=== PATIENT | female | born 1975 | race Caucasian/White ===

== ENCOUNTER 2020-02-10 06:20 | Emergency (ER) | payer MEDICARE, MEDICAID, SELFPAY ==
[2020-02-10 06:25] VITALS: BP 144/94; PULSE 75; RESP 18; O2SAT 98; BMI 47.5
--- NOTE | 2020-02-10 06:25 | PC.NURSE ---
EMS states that family stated on scene that patient stated on couch that she didn't feel well and then leaned back and described tonic clonic seizure. EMS states that patient was postictal on arrival. Patient is alert and oriented upon arrival in the ED. Patient has a history of stent placements.
--- NOTE | 2020-02-10 06:29 | ECG_ITS ---
Measurements Intervals Colman Rate: 78 P: 51 ME: 154 QRS: 30 QRSD: 80 T: 30 QT: 389 QTc: 445 SINUS RHYTHM Compared to ECG 08/15/2019 20:00:06 No significant changes Electronically Signed On 02-10-2020 20:23:51 CDT by Ethan Enrique M.D. [id number]
--- NOTE | 2020-02-10 06:29 | XRR_ITS ---
PROCEDURE INFORMATION: Exam: XR Chest, 1 View Exam date and time: 02/10/2020 6:31 AM Age: 44 years old Clinical indication: Other: Seizure; Additional info: Cough TECHNIQUE: Imaging protocol: XR of the chest Views: 1 view. COMPARISON: CR Chest 1 [place] [id number] 08/15/2019 2:20 PM FINDINGS: Lungs: Unremarkable. No consolidation. Pleural space: Unremarkable. No pleural effusion. No pneumothorax. Heart/Mediastinum: Unremarkable. No cardiomegaly. Bones/joints: Unremarkable. XR/XR chest 1V portable [id number] IMPRESSION: No acute findings.
--- NOTE | 2020-02-10 06:29 | CTR_ITS ---
PROCEDURE INFORMATION: Exam: CT Cervical Spine Without Contrast Exam date and time: 02/10/2020 6:31 AM Age: 44 years old Clinical indication: Other: Post seizure; Additional info: Pain TECHNIQUE: Imaging protocol: Computed tomography images of the cervical spine without contrast. Total DLP: 919.58 mGy-cm Radiation optimization: All CT scans at this facility use at least one of these dose optimization techniques: automated exposure control; mA and/or kV adjustment per patient size (includes targeted exams where dose is matched to clinical indication); or iterative reconstruction. COMPARISON: CR Cervical Spine AP/Lat* [id number] 04/25/2019 12:07 PM FINDINGS: Vertebrae: alignment is normal. posterior vertebral line and the spinal laminar line normal odontoid process normal no fracture Rather severe facet hypertrophy C4 on the left. Subtle lucency in the lamina at C6 likely nutrient. Bony sclerosis about the above on the axial images as well as the coronal images. The arch is otherwise unremarkable. Discs/Spinal canal/Neural foramina: Degenerative disc disease C5-C6, C6-C7 and C7-T1 Soft tissues: Unremarkable. Lungs: The lung apices are normal. CT/CT cervical spin wo con* [id number] IMPRESSION: No fracture. Degenerative disc disease Radiation Dose CTDIVOL = (mGy): DLP = 919.58 (mGy-cm)
--- NOTE | 2020-02-10 06:29 | CTR_ITS ---
PROCEDURE INFORMATION: Exam: CT Head Without Contrast Exam date and time: 02/10/2020 6:31 AM Age: 44 years old Clinical indication: Pain; Headache; Other: Post seizure; Additional info: Krishnamurthy/ams TECHNIQUE: Imaging protocol: Computed tomography of the head without contrast. Total DLP: 797.6 mGy-cm Radiation optimization: All CT scans at this facility use at least one of these dose optimization techniques: automated exposure control; mA and/or kV adjustment per patient size (includes targeted exams where dose is matched to clinical indication); or iterative reconstruction. COMPARISON: No relevant prior studies available. FINDINGS: Brain: Briscoe white matter distinction is maintained throughout the brain. No radiographic evidence of intracranial hemorrhage. No CT evidence of mass hemorrhage or acute infarction. Ventricles: Ventricles are of normal size and configuration. Bones/joints: Unremarkable. No acute fracture. Sinuses: Visualized sinuses are unremarkable. No fluid levels. Mastoid air cells: Visualized mastoid air cells are well aerated. Soft tissues: Numerous sebaceous cysts Other findings: No intra or extra-axial masses, lesions or collections. CT/CT head wo con* [id number] IMPRESSION: No acute intracranial process is appreciated. Radiation Dose CTDIVOL = (mGy): DLP = 797.6 (mGy-cm)
--- NOTE | 2020-02-10 06:40 | PC.NURSE ---
patient to CT
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
[2020-02-10] MEDS: LORazepam 2 mg/mL INJ 1 mL 1 MG IVP (06:59)
[2020-02-10 07:19] LABS: Basophils # 0.1 10^3/uL (0.0-0.1); Basophils % 1.1 %; Eosinophils # 0.3 10^3/uL (0.0-0.8); Eosinophils % 3.1 %; Hematocrit 43.7 % (37.0-47.0); Hemoglobin 14.2 g/dL (11.5-15.3); Lymphocytes % 31.6 %; Mean Corpuscular HGB Conc 32.5 g/dL (30.0-36.0); Mean Corpuscular Hemoglobin 27.5 pg (28.0-34.0); Mean Corpuscular Volume 84.7 fL (81-99); Mean Platelet Volume 9.5 fL (7.4-10.4); Monocytes # 0.5 10^3/uL (0.2-0.9); Monocytes % 5.1 %; Neutrophils # 5.6 10^3/uL (1.8-7.7); Neutrophils % 58.7 %; Nucleated Red Blood Cells % 0 %; Platelet Count 240 10^3/cmm (130-400); Red Blood Count 5.16 10^6/uL (4.1-5.3); Red Cell Distribution Width 12.7 % (12.1-15.1); White Blood Count 9.4 10^3/uL (4.0-10.0)
[2020-02-10 07:29] LABS: HCG, Serum Qual Negative (Negative)
[2020-02-10] MEDS: sodium chloride 0.9% 1,000 ML 999 ML IV (07:30)
[2020-02-10 07:35] LABS: Alanine Aminotransferase 17 U/L (0-33); Albumin Level 4.3 g/dL (3.5-5.2); Alkaline Phosphatase 97 IU/L (35-105); Anion Gap 17.7 (5-19); Aspartate Amino Transferase 18 U/L (0-32); Blood Urea Nitrogen 14 mg/dL (6-20); Calcium 10.3 mg/dL (8.5-10.5); Carbon Dioxide 27 mmol/L (22-29); Chloride 100 mmol/L (98-107); Creatine Phosphokinase 60 U/L (26-192); Globulin 3.7 g/dL (1.3-4.6); Glucose 148 mg/dL (65-115); Magnesium 1.9 mg/dL (1.7-2.3); Osmolality Calculated 291 mOsm/kg (285-295); Potassium 3.7 mmol/L (3.5-5.1); Sodium 141 mmol/L (136-145); Total Bilirubin 0.5 mg/dL (0.15-1.2)
[2020-02-10] MEDS: ondansetron 2 mg/ML SDV 2 mL 4 MG IVP (07:45)
[2020-02-10] MEDS: SUMAtriptan 6 mg/0.5 mL SDV SUBCUT (08:18)
[2020-02-10] MEDS: metoclopramide 5 mg/mL SDV 2 mL 10 MG IV (08:19)
--- NOTE | 2020-02-10 08:28 | PC.NURSE ---
PATIENT C/O PAIN, EMD INFOMRED AND ORDERS RECEIVED
[2020-02-10 08:37] LABS: Amphetamines Screen Urine Negative (Negative); Barbiturates Screen Urine Negative (Negative); Benzodiazepines Screen Urine Negative (Negative); Cocaine Screen Urine Negative (Negative); Opiate Screen Urine Negative (Negative); PCP Screen Urine Negative (Negative); THC Screen Urine Negative (Negative)
[2020-02-10 08:48] LABS: Bacteria Urine 2+; Bilirubin Urine Neg (NEGATIVE); Blood Urine Neg (Negative); Glucose Urine UA Trace (Normal); Ketones Urine Negative (Negative); Leukocyte Esterase Urine Negative (Negative); Mucus Urine 1+; Nitrate Urine Negative (Negative); Protein Urine Neg (Negative); Specific Gravity, Urine 1.025 (1.005-1.030); Urine Appearance Clear (CLEAR); Urine Color Yellow (Yellow); Urobilinogen Urine 1 mg/dL (Negative); pH Urine 5 (5-7)
[2020-02-10 08:49] LABS: Add Urine Culture? No; Hyaline Casts Urine RARE
--- NOTE | 2020-02-12 15:05 | DCPLANNER ---
agriculture sales account manager had message to schedule a follow up appointment for patient with Dr. Stanton. agriculture sales account manager called the office of Dr. Stanton, spoke with Vania, gave clinic patients information. agriculture sales account manager was told that patients information would be printed and reviewed. Clinic will call egg caser and patient with appointment information.
--- NOTE | 2020-02-14 15:05 | DCPLANNER ---
Patient has a follow up appointment scheduled for Wednesday, March 25, 2020 at 11:15. Clinic will call patient with appointment information.
--- NOTE | 2020-04-11 13:47 | DCPLANNER ---
Patient had a follow up appointment scheduled for 03.25.[address] Stanton. Patient did not attend appointment.
== END 2020-02-10 09:27 | disposition home or self-care (01) ==
PROVIDERS: Emergency Provider Emergency Medicine; Family Provider Family Medicine
DX: G40.89 Other seizures (principal); G43.909 Migraine, unspecified, not intractable, without status migrainosus; L72.3 Sebaceous cyst
CPT/HCPCS: 10060; 12345; 36415; 70450; 71045; 72125; 80053; 80306; 81001; 82550; 83735; 84703; 85025; 93005; 96361; 96372; 96374; 96375; 99283; 99284; A9270; J0131; J2060; J2405; J2765; J3030; J7030

== ENCOUNTER 2020-03-16 02:05 | Emergency (ER) | payer MEDICARE, MEDICAID, SELFPAY ==
[2020-03-16 02:18] VITALS: BP 182/117; PULSE 103; RESP 16; TEMP 36.1; O2SAT 98; BMI 45.5
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
[2020-03-16 04:16] VITALS: BP 148/86; PULSE 86; RESP 16; O2SAT 96
== END 2020-03-16 04:19 | disposition home or self-care (01) ==
PROVIDERS: Emergency Provider Emergency Medicine
DX: L72.3 Sebaceous cyst (principal)
CPT/HCPCS: 10060; 12345; 70450; 99281; 99283

== ENCOUNTER 2021-03-29 01:28 | Emergency (ER) | payer OTHER, MEDICARE, MEDICAID, SELFPAY ==
[2021-03-29 01:36] VITALS: BP 163/127; PULSE 95; RESP 18; TEMP 36.2; O2SAT 97; BMI 46.7
--- NOTE | 2021-03-29 01:51 | XRR_ITS ---
PROCEDURE INFORMATION: Exam: XR Left Knee Exam date and time: 03/29/2021 1:51 AM Age: 45 years old Clinical indication: Injury or trauma; Fall; Blunt trauma; Knee; Left TECHNIQUE: Imaging protocol: XR Left knee. Views: 3 views. COMPARISON: No relevant prior studies available. FINDINGS: Bones/joints: Normal. Soft tissues: Normal. XR/XR knee LT 3V* [id number] IMPRESSION: No acute findings.
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
[2021-03-29] MEDS: HYDROcodone-acetaminophen 5-325 mg Tablet 1 TAB PO (02:05)
[2021-03-29 03:31] VITALS: BP 160/89; PULSE 86; RESP 18; TEMP 36.6; O2SAT 95
--- NOTE | 2021-03-30 08:45 | DCPLANNER ---
manager generation had message to schedule a follow up appointment for patient with ortho, for a knee injury. manager generation called the ortho clinic, spoke with Bernadette, gave clinic patients information. manager generation was told that patients information would be printed and reviewed. Clinic will call patient with appointment information.
--- NOTE | 2021-03-31 14:19 | DCPLANNER ---
Patient has a follow up appointment scheduled for , April 01, 2021 at 8:[address] Andres at [facility]. Clinic will call patient with appointment information.
--- NOTE | 2021-05-11 07:49 | DCPLANNER ---
Patient had an appointment scheduled for 04.01.[address] Andres at [facility] - patient did attend appointment.
== END 2021-03-29 03:34 | disposition home or self-care (01) ==
PROVIDERS: Emergency Provider Emergency Medicine
DX: S83.92XA Sprain of unspecified site of left knee, initial encounter (principal); W19.XXXA Unspecified fall, initial encounter
CPT/HCPCS: 29530; 73562; 99283

== ENCOUNTER 2021-04-01 14:06 | Outpatient (CLI) | payer OTHER, MEDICARE, MEDICAID, SELFPAY | END 2021-04-01 14:07 | disposition home or self-care (01) | LOC: SPT 14:45 | PROVIDERS: Visit Provider Orthopaedic Surgery | DX: Z46.89 Encounter for fitting and adjustment of other specified devices (principal); S83.92XD Sprain of unspecified site of left knee, subsequent encounter; X58.XXXD Exposure to other specified factors, subsequent encounter | CPT/HCPCS: 97760; L1812 ==

== ENCOUNTER → 2021-04-25 11:18 | Outpatient (BNVA) | payer OTHER, MEDICARE, MEDICAID, SELFPAY | PROVIDERS: Visit Provider Nurse Practitioner Family | DX: Z20.822 Contact with and (suspected) exposure to COVID-19 (principal) | CPT/HCPCS: 87426 ==

== ENCOUNTER 2021-06-28 19:43 | Emergency (ER) | payer OTHER, MEDICARE, MEDICAID, SELFPAY ==
[2021-06-28 20:06] VITALS: BMI 43.9
--- NOTE | 2021-06-28 20:34 | W.ED.GENADLT ---
Documented by User: Edita Garcia MD 06/30/21 11:48 HPI - General Adult General: Chief complaint: Psychiatric Symptoms Stated complaint: 96 HOUR HOLD Time Seen by Provider: 06/28/21 20:08 History of Present Illness: HPI narrative: HPI: [45]yo patient w/ no known psych history BIBA for acute suicidal ideations. On arrival, the patient is AAOx3 and cooperative with my evaluation. No focal complaints of chest pain, shortness of breath, palpitations, N/V, focal GI/ complaints. Currently endorses SI. No complaints of hallucinations. Onset: chronic Duration: ongoing Location: home Severity: severe Review of Systems Narrative: Constitutional: No fever, no chills. HEENT: No vision changes CV: No chest pain, no palpitations PULM: No productive cough, no dyspnea. GI: No abdominal pain, no N/V/D. : No dysuria MSKEL: No muscle pain SKIN: No new rashes, no lesions. NEURO: No headache, no focal weakness. HEME: No visible bruises PSYCH: Normal mood, +suicidal ideation PFSH ED PFSH: Medical History Allergic reaction HX: benign breast biopsy Impetigo bullosa Intra-abdominal tumor Morbid obesity with BMI of 40.0-44.9, adult Other bursal cyst, left hand Right hand fracture Surgical History History of bariatric surgery History of hysterectomy Physical Exam Narrative: EXAM NARRATIVE: Head: Atraumatic Eyes: PERRL, conjunctiva without injection, eyes tracking ENT: Mucous membrane moist NECK: Supple without lymphadenopathy LUNGS: LCTAB CV: RRR ABDOMEN: Soft, nontender EXTREMITY: Normal ROM SKIN: No rash or erythema NEURO: Awake and alert. No focal weakness PSYCH: Cooperative mood and affect. Course Vital Signs: Vital signs: Vital Signs Pulse Rate 86 06/29/21 18:14 Respiratory Rate 16 06/29/21 18:14 Blood Pressure 144/82 06/29/21 03:38 Pulse Oximetry 99 06/29/21 18:14 MDM - General Adult MDM Narrative: Medical decision making narrative: [45]yo patient presenting for acute suicidal ideations. HDS, exam within normal limit Thoughts are linear and organized, and the patient has no AH/VH, or HI. Clinically the patient displays no overt toxidrome; they are well appearing, with low suspicion for toxic ingestion given history and exam. Symptoms unlikely 2/2 anemia, hypothyroidism, infection, or ICH. Workup: CBC, CMP, Lipase, salicylate/tylenol Lab findings: wnl [9:30pm] On reassessment, labs and workup wnl. Patient is hemodynamically stable with no acute medical complaints. Patient works here [facility], and therefore needed transfer to outside facility given conflict of interest and concern for possible escape plan given patient's knowledge of the facility. Pending transfer to outside hospital. Case signed out to Dr. Almanza. Lab Data: Labs: Lab Results 06/28/21 06/28/21 06/28/21 Range/Units 20:34 20:34 20:34 WBC 9.8 (4.0-10.0) 10^3/ uL RBC 4.88 (4.1-5.3) 10^6/u L Hgb 13.9 (11.5-15.3) g/dL Hct 40.6 (37.0-47.0) % MCV 83.2 (81-99) fl MCH 28.5 (28.0-34.0) pg MCHC 34.2 (30.0-36.0) g/dL RDW 12.8 (12.1-15.1) % Plt Count 208 (130-400) 10^3/c mm MPV 9.7 (7.4-10.4) fL Neut % (Auto) 64.3 % Lymph % (Auto) 18.2 % [place] % (Auto) 3.5 % Eos % (Auto) 12.6 % Baso % (Auto) 1.0 % Neut # (Auto) 6.28 (1.8-7.7) 10^3/u L Lymph # (Auto) 1.8 (0.8-4.8) 10^3/u L [place] # (Auto) 0.3 (0.2-0.9) 10^3/u L Eos # (Auto) 1.2 H (0.0-0.8) 10^3/u L Baso # (Auto) 0.1 (0.0-0.1) 10^3/u L Nucleated RBC % (a uto) 0 % Nucleated RBCs # 0.0 /100WBC Sodium 140 (136-145) mmol/L Potassium 3.4 L (3.5-5.1) mmol/L Chloride 105 (98-107) mmol/L Carbon Dioxide 24 (22-29) mmol/L Anion Gap 14.4 (5-19) BUN 10 (6-20) mg/dL Creatinine 0.8 (0.5-0.9) mg/dL GFR Calculation 77.6 L (90-130) mL/min Glucose 176 H (65-115) mg/dL Calculated Osmolal ity 293 (285-295) mOsm/k g Calcium 9.0 (8.5-10.5) mg/dL HCG, Qual (Negative) Ser , Elier i-Qnt Cancelled Urine Color (Yellow) Urine Appearance (CLEAR) Urine pH (5-7) Ur Specific Gravit y (1.005-1.030) Urine Protein (Negative) Urine Glucose (UA) (Normal) Urine Ketones (Negative) Urine Blood (Negative) Urine Nitrate (Negative) Urine Bilirubin (Negative) Urine Urobilinogen (Negative) mg/dL Ur Leukocyte Cheryl ase (Negative) Urine RBC (0-2) /hpf Urine WBC (0-5) /hpf Ur Squamous Epith Cells (0-5) /hpf Calcium Oxalate Cr ystal /hpf Amorphous Sediment Urine Bacteria (NONE) /hpf Salicylates < 0.3 L (3-10) mg/dL Urine Opiates Scre en (Negative) ng/mL Acetaminophen < 5.0 L (10-30) ug/mL Ur Barbiturates Sc reen (Negative) ng/mL Ur Phencyclidine S crn (Negative) ng/mL Ur Amphetamines Sc reen (Negative) ng/mL U Benzodiazepines Scrn (Negative) ng/mL Urine Cocaine Scre en (Negative) ng/mL U Marijuana (THC) Screen (Negative) ng/mL SARS-CoV-2 Ag (Rap id) (Negative) 06/29/21 06/29/21 06/29/21 Range/Units 03:08 04:41 04:41 WBC (4.0-10.0) 10^3/ uL RBC (4.1-5.3) 10^6/u L Hgb (11.5-15.3) g/dL Hct (37.0-47.0) % MCV (81-99) fl MCH (28.0-34.0) pg MCHC (30.0-36.0) g/dL RDW (12.1-15.1) % Plt Count (130-400) 10^3/c mm MPV (7.4-10.4) fL Neut % (Auto) % Lymph % (Auto) % [place] % (Auto) % Eos % (Auto) % Baso % (Auto) % Neut # (Auto) (1.8-7.7) 10^3/u L Lymph # (Auto) (0.8-4.8) 10^3/u L [place] # (Auto) (0.2-0.9) 10^3/u L Eos # (Auto) (0.0-0.8) 10^3/u L Baso # (Auto) (0.0-0.1) 10^3/u L Nucleated RBC % (a uto) % Nucleated RBCs # /100WBC Sodium (136-145) mmol/L Potassium (3.5-5.1) mmol/L Chloride (98-107) mmol/L Carbon Dioxide (22-29) mmol/L Anion Gap (5-19) BUN (6-20) mg/dL Creatinine (0.5-0.9) mg/dL GFR Calculation (90-130) mL/min Glucose (65-115) mg/dL Calculated Osmolal ity (285-295) mOsm/k g Calcium (8.5-10.5) mg/dL HCG, Qual (Negative) Ser , Elier i-Qnt Urine Color Yellow (Yellow) Urine Appearance Hazy A (CLEAR) Urine pH 5 (5-7) Ur Specific Gravit y 1.025 (1.005-1.030) Urine Protein Neg (Negative) Urine Glucose (UA) Norm (Normal) Urine Ketones Negative (Negative) Urine Blood Trace H (Negative) Urine Nitrate Negative (Negative) Urine Bilirubin Neg (Negative) Urine Urobilinogen Norm (Negative) mg/dL Ur Leukocyte Cheryl ase 1+ H (Negative) Urine RBC None (0-2) /hpf Urine WBC 10-15 H (0-5) /hpf Ur Squamous Epith Cells 15-25 H (0-5) /hpf Calcium Oxalate Cr ystal 0-4 H /hpf Amorphous Sediment Not Reportable Urine Bacteria 1+ H (NONE) /hpf Salicylates (3-10) mg/dL Urine Opiates Scre en Negative (Negative) ng/mL Acetaminophen (10-30) ug/mL Ur Barbiturates Sc reen Negative (Negative) ng/mL Ur Phencyclidine S crn Negative (Negative) ng/mL Ur Amphetamines Sc reen Positive H (Negative) ng/mL U Benzodiazepines Scrn Negative (Negative) ng/mL Urine Cocaine Scre en Negative (Negative) ng/mL U Marijuana (THC) Screen Negative (Negative) ng/mL SARS-CoV-2 Ag (Rap id) Negative (Negative) 06/29/21 Range/Units 04:41 WBC (4.0-10.0) 10^3/ uL RBC (4.1-5.3) 10^6/u L Hgb (11.5-15.3) g/dL Hct (37.0-47.0) % MCV (81-99) fl MCH (28.0-34.0) pg MCHC (30.0-36.0) g/dL RDW (12.1-15.1) % Plt Count (130-400) 10^3/c mm MPV (7.4-10.4) fL Neut % (Auto) % Lymph % (Auto) % [place] % (Auto) % Eos % (Auto) % Baso % (Auto) % Neut # (Auto) (1.8-7.7) 10^3/u L Lymph # (Auto) (0.8-4.8) 10^3/u L [place] # (Auto) (0.2-0.9) 10^3/u L Eos # (Auto) (0.0-0.8) 10^3/u L Baso # (Auto) (0.0-0.1) 10^3/u L Nucleated RBC % (a uto) % Nucleated RBCs # /100WBC Sodium (136-145) mmol/L Potassium (3.5-5.1) mmol/L Chloride (98-107) mmol/L Carbon Dioxide (22-29) mmol/L Anion Gap (5-19) BUN (6-20) mg/dL Creatinine (0.5-0.9) mg/dL GFR Calculation (90-130) mL/min Glucose (65-115) mg/dL Calculated Osmolal ity (285-295) mOsm/k g Calcium (8.5-10.5) mg/dL HCG, Qual Negative (Negative) Ser , Elier i-Qnt Urine Color (Yellow) Urine Appearance (CLEAR) Urine pH (5-7) Ur Specific Gravit y (1.005-1.030) Urine Protein (Negative) Urine Glucose (UA) (Normal) Urine Ketones (Negative) Urine Blood (Negative) Urine Nitrate (Negative) Urine Bilirubin (Negative) Urine Urobilinogen (Negative) mg/dL Ur Leukocyte Cheryl ase (Negative) Urine RBC (0-2) /hpf Urine WBC (0-5) /hpf Ur Squamous Epith Cells (0-5) /hpf Calcium Oxalate Cr ystal /hpf Amorphous Sediment Urine Bacteria (NONE) /hpf Salicylates (3-10) mg/dL Urine Opiates Scre en (Negative) ng/mL Acetaminophen (10-30) ug/mL Ur Barbiturates Sc reen (Negative) ng/mL Ur Phencyclidine S crn (Negative) ng/mL Ur Amphetamines Sc reen (Negative) ng/mL U Benzodiazepines Scrn (Negative) ng/mL Urine Cocaine Scre en (Negative) ng/mL U Marijuana (THC) Screen (Negative) ng/mL SARS-CoV-2 Ag (Rap id) (Negative) Discharge Plan Discharge Patient Disposition: Transfer to ED Clinical Impression: Suicidal ideations Condition: Stable Prescriptions: No Action Tylenol Extra Strength 500 mg Tablet 1,000 mg PO Q4H PRN (Reason: Pain) RF: 0 ibuprofen 200 mg Tablet 400 mg PO Q4H PRN (Reason: Pain) RF: 0 Sign Out Sign Out Data: Patient Sign Out occurred on 06/29/21 at 00:20. Patient's care was discussed, and care was transferred from to Victor Hugo Almanza MD. Coding Level of Care Code ED Special Service Representative for Donald Fwd Documented by User: Gabe Blanco DO 06/30/21 08:11 HPI - General Adult General: Chief complaint: Psychiatric Symptoms Stated complaint: 96 HOUR HOLD Time Seen by Provider: 06/28/21 20:08 PFSH ED PFSH: Medical History Allergic reaction HX: benign breast biopsy Impetigo bullosa Intra-abdominal tumor Morbid obesity with BMI of 40.0-44.9, adult Other bursal cyst, left hand Right hand fracture Surgical History History of bariatric surgery History of hysterectomy Course Vital Signs: Vital signs: Vital Signs Pulse Rate 86 06/29/21 18:14 Respiratory Rate 16 06/29/21 18:14 Blood Pressure 144/82 06/29/21 03:38 Pulse Oximetry 99 06/29/21 18:14 MDM - General Adult MDM Narrative: Medical decision making narrative: Care assumed a change of shift. Working on placement at this time. Patient is resting comfortably is complaining of headache we will give her 650 of Tylenol. Patient doing well and is stable. We were able to make arrangements for transfer. 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 Lab Data: Labs: Lab Results 06/28/21 06/28/21 06/28/21 Range/Units 20:34 20:34 20:34 WBC 9.8 (4.0-10.0) 10^3/ uL RBC 4.88 (4.1-5.3) 10^6/u L Hgb 13.9 (11.5-15.3) g/dL Hct 40.6 (37.0-47.0) % MCV 83.2 (81-99) fl MCH 28.5 (28.0-34.0) pg MCHC 34.2 (30.0-36.0) g/dL RDW 12.8 (12.1-15.1) % Plt Count 208 (130-400) 10^3/c mm MPV 9.7 (7.4-10.4) fL Neut % (Auto) 64.3 % Lymph % (Auto) 18.2 % [place] % (Auto) 3.5 % Eos % (Auto) 12.6 % Baso % (Auto) 1.0 % Neut # (Auto) 6.28 (1.8-7.7) 10^3/u L Lymph # (Auto) 1.8 (0.8-4.8) 10^3/u L [place] # (Auto) 0.3 (0.2-0.9) 10^3/u L Eos # (Auto) 1.2 H (0.0-0.8) 10^3/u L Baso # (Auto) 0.1 (0.0-0.1) 10^3/u L Nucleated RBC % (a uto) 0 % Nucleated RBCs # 0.0 /100WBC Sodium 140 (136-145) mmol/L Potassium 3.4 L (3.5-5.1) mmol/L Chloride 105 (98-107) mmol/L Carbon Dioxide 24 (22-29) mmol/L Anion Gap 14.4 (5-19) BUN 10 (6-20) mg/dL Creatinine 0.8 (0.5-0.9) mg/dL GFR Calculation 77.6 L (90-130) mL/min Glucose 176 H (65-115) mg/dL Calculated Osmolal ity 293 (285-295) mOsm/k g Calcium 9.0 (8.5-10.5) mg/dL HCG, Qual (Negative) Ser , Elier i-Qnt Cancelled Urine Color (Yellow) Urine Appearance (CLEAR) Urine pH (5-7) Ur Specific Gravit y (1.005-1.030) Urine Protein (Negative) Urine Glucose (UA) (Normal) Urine Ketones (Negative) Urine Blood (Negative) Urine Nitrate (Negative) Urine Bilirubin (Negative) Urine Urobilinogen (Negative) mg/dL Ur Leukocyte Cheryl ase (Negative) Urine RBC (0-2) /hpf Urine WBC (0-5) /hpf Ur Squamous Epith Cells (0-5) /hpf Calcium Oxalate Cr ystal /hpf Amorphous Sediment Urine Bacteria (NONE) /hpf Salicylates < 0.3 L (3-10) mg/dL Urine Opiates Scre en (Negative) ng/mL Acetaminophen < 5.0 L (10-30) ug/mL Ur Barbiturates Sc reen (Negative) ng/mL Ur Phencyclidine S crn (Negative) ng/mL Ur Amphetamines Sc reen (Negative) ng/mL U Benzodiazepines Scrn (Negative) ng/mL Urine Cocaine Scre en (Negative) ng/mL U Marijuana (THC) Screen (Negative) ng/mL SARS-CoV-2 Ag (Rap id) (Negative) 06/29/21 06/29/21 06/29/21 Range/Units 03:08 04:41 04:41 WBC (4.0-10.0) 10^3/ uL RBC (4.1-5.3) 10^6/u L Hgb (11.5-15.3) g/dL Hct (37.0-47.0) % MCV (81-99) fl MCH (28.0-34.0) pg MCHC (30.0-36.0) g/dL RDW (12.1-15.1) % Plt Count (130-400) 10^3/c mm MPV (7.4-10.4) fL Neut % (Auto) % Lymph % (Auto) % [place] % (Auto) % Eos % (Auto) % Baso % (Auto) % Neut # (Auto) (1.8-7.7) 10^3/u L Lymph # (Auto) (0.8-4.8) 10^3/u L [place] # (Auto) (0.2-0.9) 10^3/u L Eos # (Auto) (0.0-0.8) 10^3/u L Baso # (Auto) (0.0-0.1) 10^3/u L Nucleated RBC % (a uto) % Nucleated RBCs # /100WBC Sodium (136-145) mmol/L Potassium (3.5-5.1) mmol/L Chloride (98-107) mmol/L Carbon Dioxide (22-29) mmol/L Anion Gap (5-19) BUN (6-20) mg/dL Creatinine (0.5-0.9) mg/dL GFR Calculation (90-130) mL/min Glucose (65-115) mg/dL Calculated Osmolal ity (285-295) mOsm/k g Calcium (8.5-10.5) mg/dL HCG, Qual (Negative) Ser , Elier i-Qnt Urine Color Yellow (Yellow) Urine Appearance Hazy A (CLEAR) Urine pH 5 (5-7) Ur Specific Gravit y 1.025 (1.005-1.030) Urine Protein Neg (Negative) Urine Glucose (UA) Norm (Normal) Urine Ketones Negative (Negative) Urine Blood Trace H (Negative) Urine Nitrate Negative (Negative) Urine Bilirubin Neg (Negative) Urine Urobilinogen Norm (Negative) mg/dL Ur Leukocyte Cheryl ase 1+ H (Negative) Urine RBC None (0-2) /hpf Urine WBC 10-15 H (0-5) /hpf Ur Squamous Epith Cells 15-25 H (0-5) /hpf Calcium Oxalate Cr ystal 0-4 H /hpf Amorphous Sediment Not Reportable Urine Bacteria 1+ H (NONE) /hpf Salicylates (3-10) mg/dL Urine Opiates Scre en Negative (Negative) ng/mL Acetaminophen (10-30) ug/mL Ur Barbiturates Sc reen Negative (Negative) ng/mL Ur Phencyclidine S crn Negative (Negative) ng/mL Ur Amphetamines Sc reen Positive H (Negative) ng/mL U Benzodiazepines Scrn Negative (Negative) ng/mL Urine Cocaine Scre en Negative (Negative) ng/mL U Marijuana (THC) Screen Negative (Negative) ng/mL SARS-CoV-2 Ag (Rap id) Negative (Negative) 06/29/21 Range/Units 04:41 WBC (4.0-10.0) 10^3/ uL RBC (4.1-5.3) 10^6/u L Hgb (11.5-15.3) g/dL Hct (37.0-47.0) % MCV (81-99) fl MCH (28.0-34.0) pg MCHC (30.0-36.0) g/dL RDW (12.1-15.1) % Plt Count (130-400) 10^3/c mm MPV (7.4-10.4) fL Neut % (Auto) % Lymph % (Auto) % [place] % (Auto) % Eos % (Auto) % Baso % (Auto) % Neut # (Auto) (1.8-7.7) 10^3/u L Lymph # (Auto) (0.8-4.8) 10^3/u L [place] # (Auto) (0.2-0.9) 10^3/u L Eos # (Auto) (0.0-0.8) 10^3/u L Baso # (Auto) (0.0-0.1) 10^3/u L Nucleated RBC % (a uto) % Nucleated RBCs # /100WBC Sodium (136-145) mmol/L Potassium (3.5-5.1) mmol/L Chloride (98-107) mmol/L Carbon Dioxide (22-29) mmol/L Anion Gap (5-19) BUN (6-20) mg/dL Creatinine (0.5-0.9) mg/dL GFR Calculation (90-130) mL/min Glucose (65-115) mg/dL Calculated Osmolal ity (285-295) mOsm/k g Calcium (8.5-10.5) mg/dL HCG, Qual Negative (Negative) Ser , Elier i-Qnt Urine Color (Yellow) Urine Appearance (CLEAR) Urine pH (5-7) Ur Specific Gravit y (1.005-1.030) Urine Protein (Negative) Urine Glucose (UA) (Normal) Urine Ketones (Negative) Urine Blood (Negative) Urine Nitrate (Negative) Urine Bilirubin (Negative) Urine Urobilinogen (Negative) mg/dL Ur Leukocyte Cheryl ase (Negative) Urine RBC (0-2) /hpf Urine WBC (0-5) /hpf Ur Squamous Epith Cells (0-5) /hpf Calcium Oxalate Cr ystal /hpf Amorphous Sediment Urine Bacteria (NONE) /hpf Salicylates (3-10) mg/dL Urine Opiates Scre en (Negative) ng/mL Acetaminophen (10-30) ug/mL Ur Barbiturates Sc reen (Negative) ng/mL Ur Phencyclidine S crn (Negative) ng/mL Ur Amphetamines Sc reen (Negative) ng/mL U Benzodiazepines Scrn (Negative) ng/mL Urine Cocaine Scre en (Negative) ng/mL U Marijuana (THC) Screen (Negative) ng/mL SARS-CoV-2 Ag (Rap id) (Negative) Discharge Plan Discharge Patient Disposition: Transfer to ED Clinical Impression: Suicidal ideations Condition: Stable Prescriptions: No Action Tylenol Extra Strength 500 mg Tablet 1,000 mg PO Q4H PRN (Reason: Pain) RF: 0 ibuprofen 200 mg Tablet 400 mg PO Q4H PRN (Reason: Pain) RF: 0 Sign Out Sign Out Data: Patient Sign Out occurred on 06/29/21 at 00:20. Patient's care was discussed, and care was transferred from to Victor Hugo Almanza MD. Coding Level of Care Code ED Special Service Representative for Chg Fwd Documented by User: Victor Hugo Almanza MD 06/30/21 02:14 HPI - General Adult General: Chief complaint: Psychiatric Symptoms Stated complaint: 96 HOUR HOLD Time Seen by Provider: 06/28/21 20:08 PFSH ED PFSH: Medical History Allergic reaction HX: benign breast biopsy Impetigo bullosa Intra-abdominal tumor Morbid obesity with BMI of 40.0-44.9, adult Other bursal cyst, left hand Right hand fracture Surgical History History of bariatric surgery History of hysterectomy Course Vital Signs: Vital signs: Vital Signs Pulse Rate 86 06/29/21 18:14 Respiratory Rate 16 06/29/21 18:14 Blood Pressure 144/82 06/29/21 03:38 Pulse Oximetry 99 06/29/21 18:14 MDM - General Adult MDM Narrative: Medical decision making narrative: Patient care handoff received from Dr. Garcia. No acute events during my shift. Patient handoff to Dr. Blanco in the morning for continued monitoring prior to outside psych facility transfer Victor Hugo Almanza MD Emergency Medicine Lab Data: Labs: Lab Results 06/28/21 06/28/21 06/28/21 Range/Units 20:34 20:34 20:34 WBC 9.8 (4.0-10.0) 10^3/ uL RBC 4.88 (4.1-5.3) 10^6/u L Hgb 13.9 (11.5-15.3) g/dL Hct 40.6 (37.0-47.0) % MCV 83.2 (81-99) fl MCH 28.5 (28.0-34.0) pg MCHC 34.2 (30.0-36.0) g/dL RDW 12.8 (12.1-15.1) % Plt Count 208 (130-400) 10^3/c mm MPV 9.7 (7.4-10.4) fL Neut % (Auto) 64.3 % Lymph % (Auto) 18.2 % [place] % (Auto) 3.5 % Eos % (Auto) 12.6 % Baso % (Auto) 1.0 % Neut # (Auto) 6.28 (1.8-7.7) 10^3/u L Lymph # (Auto) 1.8 (0.8-4.8) 10^3/u L [place] # (Auto) 0.3 (0.2-0.9) 10^3/u L Eos # (Auto) 1.2 H (0.0-0.8) 10^3/u L Baso # (Auto) 0.1 (0.0-0.1) 10^3/u L Nucleated RBC % (a uto) 0 % Nucleated RBCs # 0.0 /100WBC Sodium 140 (136-145) mmol/L Potassium 3.4 L (3.5-5.1) mmol/L Chloride 105 (98-107) mmol/L Carbon Dioxide 24 (22-29) mmol/L Anion Gap 14.4 (5-19) BUN 10 (6-20) mg/dL Creatinine 0.8 (0.5-0.9) mg/dL GFR Calculation 77.6 L (90-130) mL/min Glucose 176 H (65-115) mg/dL Calculated Osmolal ity 293 (285-295) mOsm/k g Calcium 9.0 (8.5-10.5) mg/dL HCG, Qual (Negative) Ser , Elier i-Qnt Cancelled Urine Color (Yellow) Urine Appearance (CLEAR) Urine pH (5-7) Ur Specific Gravit y (1.005-1.030) Urine Protein (Negative) Urine Glucose (UA) (Normal) Urine Ketones (Negative) Urine Blood (Negative) Urine Nitrate (Negative) Urine Bilirubin (Negative) Urine Urobilinogen (Negative) mg/dL Ur Leukocyte Cheryl ase (Negative) Urine RBC (0-2) /hpf Urine WBC (0-5) /hpf Ur Squamous Epith Cells (0-5) /hpf Calcium Oxalate Cr ystal /hpf Amorphous Sediment Urine Bacteria (NONE) /hpf Salicylates < 0.3 L (3-10) mg/dL Urine Opiates Scre en (Negative) ng/mL Acetaminophen < 5.0 L (10-30) ug/mL Ur Barbiturates Sc reen (Negative) ng/mL Ur Phencyclidine S crn (Negative) ng/mL Ur Amphetamines Sc reen (Negative) ng/mL U Benzodiazepines Scrn (Negative) ng/mL Urine Cocaine Scre en (Negative) ng/mL U Marijuana (THC) Screen (Negative) ng/mL SARS-CoV-2 Ag (Rap id) (Negative) 06/29/21 06/29/21 06/29/21 Range/Units 03:08 04:41 04:41 WBC (4.0-10.0) 10^3/ uL RBC (4.1-5.3) 10^6/u L Hgb (11.5-15.3) g/dL Hct (37.0-47.0) % MCV (81-99) fl MCH (28.0-34.0) pg MCHC (30.0-36.0) g/dL RDW (12.1-15.1) % Plt Count (130-400) 10^3/c mm MPV (7.4-10.4) fL Neut % (Auto) % Lymph % (Auto) % [place] % (Auto) % Eos % (Auto) % Baso % (Auto) % Neut # (Auto) (1.8-7.7) 10^3/u L Lymph # (Auto) (0.8-4.8) 10^3/u L [place] # (Auto) (0.2-0.9) 10^3/u L Eos # (Auto) (0.0-0.8) 10^3/u L Baso # (Auto) (0.0-0.1) 10^3/u L Nucleated RBC % (a uto) % Nucleated RBCs # /100WBC Sodium (136-145) mmol/L Potassium (3.5-5.1) mmol/L Chloride (98-107) mmol/L Carbon Dioxide (22-29) mmol/L Anion Gap (5-19) BUN (6-20) mg/dL Creatinine (0.5-0.9) mg/dL GFR Calculation (90-130) mL/min Glucose (65-115) mg/dL Calculated Osmolal ity (285-295) mOsm/k g Calcium (8.5-10.5) mg/dL HCG, Qual (Negative) Ser , Elier i-Qnt Urine Color Yellow (Yellow) Urine Appearance Hazy A (CLEAR) Urine pH 5 (5-7) Ur Specific Gravit y 1.025 (1.005-1.030) Urine Protein Neg (Negative) Urine Glucose (UA) Norm (Normal) Urine Ketones Negative (Negative) Urine Blood Trace H (Negative) Urine Nitrate Negative (Negative) Urine Bilirubin Neg (Negative) Urine Urobilinogen Norm (Negative) mg/dL Ur Leukocyte Cheryl ase 1+ H (Negative) Urine RBC None (0-2) /hpf Urine WBC 10-15 H (0-5) /hpf Ur Squamous Epith Cells 15-25 H (0-5) /hpf Calcium Oxalate Cr ystal 0-4 H /hpf Amorphous Sediment Not Reportable Urine Bacteria 1+ H (NONE) /hpf Salicylates (3-10) mg/dL Urine Opiates Scre en Negative (Negative) ng/mL Acetaminophen (10-30) ug/mL Ur Barbiturates Sc reen Negative (Negative) ng/mL Ur Phencyclidine S crn Negative (Negative) ng/mL Ur Amphetamines Sc reen Positive H (Negative) ng/mL U Benzodiazepines Scrn Negative (Negative) ng/mL Urine Cocaine Scre en Negative (Negative) ng/mL U Marijuana (THC) Screen Negative (Negative) ng/mL SARS-CoV-2 Ag (Rap id) Negative (Negative) 06/29/21 Range/Units 04:41 WBC (4.0-10.0) 10^3/ uL RBC (4.1-5.3) 10^6/u L Hgb (11.5-15.3) g/dL Hct (37.0-47.0) % MCV (81-99) fl MCH (28.0-34.0) pg MCHC (30.0-36.0) g/dL RDW (12.1-15.1) % Plt Count (130-400) 10^3/c mm MPV (7.4-10.4) fL Neut % (Auto) % Lymph % (Auto) % [place] % (Auto) % Eos % (Auto) % Baso % (Auto) % Neut # (Auto) (1.8-7.7) 10^3/u L Lymph # (Auto) (0.8-4.8) 10^3/u L [place] # (Auto) (0.2-0.9) 10^3/u L Eos # (Auto) (0.0-0.8) 10^3/u L Baso # (Auto) (0.0-0.1) 10^3/u L Nucleated RBC % (a uto) % Nucleated RBCs # /100WBC Sodium (136-145) mmol/L Potassium (3.5-5.1) mmol/L Chloride (98-107) mmol/L Carbon Dioxide (22-29) mmol/L Anion Gap (5-19) BUN (6-20) mg/dL Creatinine (0.5-0.9) mg/dL GFR Calculation (90-130) mL/min Glucose (65-115) mg/dL Calculated Osmolal ity (285-295) mOsm/k g Calcium (8.5-10.5) mg/dL HCG, Qual Negative (Negative) Ser , Elier i-Qnt Urine Color (Yellow) Urine Appearance (CLEAR) Urine pH (5-7) Ur Specific Gravit y (1.005-1.030) Urine Protein (Negative) Urine Glucose (UA) (Normal) Urine Ketones (Negative) Urine Blood (Negative) Urine Nitrate (Negative) Urine Bilirubin (Negative) Urine Urobilinogen (Negative) mg/dL Ur Leukocyte Cheryl ase (Negative) Urine RBC (0-2) /hpf Urine WBC (0-5) /hpf Ur Squamous Epith Cells (0-5) /hpf Calcium Oxalate Cr ystal /hpf Amorphous Sediment Urine Bacteria (NONE) /hpf Salicylates (3-10) mg/dL Urine Opiates Scre en (Negative) ng/mL Acetaminophen (10-30) ug/mL Ur Barbiturates Sc reen (Negative) ng/mL Ur Phencyclidine S crn (Negative) ng/mL Ur Amphetamines Sc reen (Negative) ng/mL U Benzodiazepines Scrn (Negative) ng/mL Urine Cocaine Scre en (Negative) ng/mL U Marijuana (THC) Screen (Negative) ng/mL SARS-CoV-2 Ag (Rap id) (Negative) Discharge Plan Discharge Patient Disposition: Transfer to ED Clinical Impression: Suicidal ideations Condition: Stable Prescriptions: No Action Tylenol Extra Strength 500 mg Tablet 1,000 mg PO Q4H PRN (Reason: Pain) RF: 0 ibuprofen 200 mg Tablet 400 mg PO Q4H PRN (Reason: Pain) RF: 0 Sign Out Sign Out Data: Patient Sign Out occurred on 06/29/21 at 00:20. Patient's care was discussed, and care was transferred from to Victor Hugo Almanza MD. Coding Level of Care Code ED Special Service Representative for Donald Sofia
[2021-06-28 20:44] LABS: Basophils # 0.1 10^3/uL (0.0-0.1); Eosinophils # 1.2 10^3/uL (0.0-0.8); Eosinophils % 12.6 %; Hematocrit 40.6 % (37.0-47.0); Hemoglobin 13.9 g/dL (11.5-15.3); Lymphocytes # 1.8 10^3/uL (0.8-4.8); Lymphocytes % 18.2 %; Mean Corpuscular HGB Conc 34.2 g/dL (30.0-36.0); Mean Corpuscular Hemoglobin 28.5 pg (28.0-34.0); Mean Corpuscular Volume 83.2 fl (81-99); Mean Platelet Volume 9.7 fL (7.4-10.4); Monocytes # 0.3 10^3/uL (0.2-0.9); Monocytes % 3.5 %; Neutrophils # 6.28 10^3/uL (1.8-7.7); Neutrophils % 64.3 %; Nucleated Red Blood Cells % 0 %; Platelet Count 208 10^3/cmm (130-400); Red Blood Count 4.88 10^6/uL (4.1-5.3); Red Cell Distribution Width 12.8 % (12.1-15.1); White Blood Count 9.8 10^3/uL (4.0-10.0)
[2021-06-28 21:02] LABS: Anion Gap 14.4 (5-19); Blood Urea Nitrogen 10 mg/dL (6-20); Carbon Dioxide 24 mmol/L (22-29); Chloride 105 mmol/L (98-107); Glomerular Filtration Rate 77.6 mL/min (90-130); Glucose 176 mg/dL (65-115); Osmolality Calculated 293 mOsm/kg (285-295); Potassium 3.4 mmol/L (3.5-5.1); Sodium 140 mmol/L (136-145)
[2021-06-28 21:07] LABS: Acetaminophen < 5.0 ug/mL (10-30); Salicylate < 0.3 mg/dL (3-10)
[2021-06-28] MEDS: ondansetron 4 MG Tablet PO (22:06)
[2021-06-28] MEDS: LORazepam 0.5 mg Tablet PO (22:42)
--- NOTE | 2021-06-28 23:09 | ECG_ITS ---
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 Measurements Intervals [place] Rate: 74 P: 61 NE: 147 QRS: 45 QRSD: 90 T: 49 QT: 407 QTc: 453 Interpretive Statements SINUS RHYTHM LOW QRS VOLTAGE IN PRECORDIAL LEADS [QRS DEFLECTION < 1.0 mV IN CHEST LEADS] POSSIBLE RIGHT VENTRICULAR CONDUCTION DELAY [RSR (QR) IN V1/V2] NONSPECIFIC T-WAVE ABNORMALITY Compared to ECG 02/10/2020 07:26:52 Low QRS voltage now present T-wave abnormality now present Electronically Signed On 06-29-2021 19:22:05 CDT by Shanice Ivy M.D. [id number]
[2021-06-28] MEDS: LORazepam 1 mg Tablet PO (23:33)
[2021-06-29 01:53] VITALS: BP 123/72; PULSE 73; RESP 16; O2SAT 97
[2021-06-29 03:05] VITALS: BP 131/91; PULSE 75; RESP 18; O2SAT 93
[2021-06-29 03:38] VITALS: BP 144/82; PULSE 84; RESP 14; O2SAT 97
[2021-06-29 03:50] LABS: SARS Covid-2 Antigen Negative (Negative)
[2021-06-29 05:38] LABS: Amphetamines Screen Urine Positive (Negative); Barbiturates Screen Urine Negative (Negative); Benzodiazepines Screen Urine Negative (Negative); Cocaine Screen Urine Negative (Negative); Opiate Screen Urine Negative (Negative); PCP Screen Urine Negative (Negative); THC Screen Urine Negative (Negative)
[2021-06-29] MEDS: acetaminophen 325 mg Tablet 650 MG PO (08:23)
--- NOTE | 2021-06-29 10:38 | PC.PHAR ---
pt states she takes care of her own medications-pt states she use to take losartan 25mg ext med history shows last filled on 03/27/21 30d/s pt states she hasnt taken since april-pt states she did have vistaril 50mg bid prn pt states she finished them and states they didnt work-pt states she doesnt take any rx medications pt states she only takes otc meds prn
[2021-06-29 13:53] LABS: Bilirubin Urine Neg (Negative); Blood Urine Trace (Negative); Glucose Urine UA Norm (Normal); Ketones Urine Negative (Negative); Nitrate Urine Negative (Negative); Protein Urine Neg (Negative); Specific Gravity, Urine 1.025 (1.005-1.030); Urine Appearance Hazy (CLEAR); Urine Color Yellow (Yellow); pH Urine 5 (5-7)
[2021-06-29 13:54] LABS: Add Urine Culture? No; Add Urine Microscopic? YES; Bacteria Urine 1+ /hpf; Calcium Oxalate Crystals Urine 0-4 /hpf; Leukocyte Esterase Urine 1+ (Negative); Squamous Epithelial Cell Urine 15-25 /hpf (0-5); Urobilinogen Urine Norm (Negative)
[2021-06-29 14:05] LABS: HCG Qualitative Urine. Negative (Negative)
[2021-06-29] MEDS: LORazepam 2 mg Tablet PO (17:30)
[2021-06-29 18:14] VITALS: PULSE 86; RESP 16; O2SAT 99
== END 2021-06-29 18:15 ==
PROVIDERS: Emergency Medicine; Emergency Provider Family Medicine
DX: R45.851 Suicidal ideations (principal); Z20.822 Contact with and (suspected) exposure to COVID-19
CPT/HCPCS: 80048; 80306; 80307; 81001; 81025; 85025; 87426; 93005; 99285; Q0162

== ENCOUNTER 2021-08-13 03:22 | Emergency (ER) | payer OTHER, MEDICARE, MEDICAID, SELFPAY ==
[2021-08-13] VITALS (9 sets, daily range): BP systolic 94–136; BP diastolic 71–91; PULSE 70–114; RESP 11–22; TEMP 36.2; O2SAT 93–98; BMI 40.4
--- NOTE | 2021-08-13 03:26 | XRR_ITS ---
PROCEDURE INFORMATION: Exam: XR Chest Exam date and time: 08/13/2021 3:26 AM Age: 45 years old Clinical indication: Chest pressure; Prior surgery; Surgery type: Coronary stents; Patient HX: Sudden onset of chest pain this a. M. ; Additional info: Yuri TECHNIQUE: Imaging protocol: XR of the chest. Views: 1 view. COMPARISON: CR XR chest 1V portable [id number] 02/10/2020 6:46 AM FINDINGS: Lungs: Poor inspiratory effort with some crowding of pulmonary markings and possible accentuation of the apparent heart size. Pleural spaces: Unremarkable. No pleural effusion. No pneumothorax. Heart/Mediastinum: See Lungs finding. Bones/joints: Moderate thoracic spondylosis. Mild bilateral acromioclavicular arthropathy. XR/XR chest 1V portable [id number] IMPRESSION: No acute findings. Radiation Dose CTDIVOL = (mGy): DLP = (mGy-cm)
--- NOTE | 2021-08-13 03:26 | ECG_ITS ---
[facility] Test Date: 2021-08-13 Pat Name: Tania Rodriguez Department: Room: Gender: Female Giver: : 1975 Requested By: Elian Hudson Order Number: [id number] Caridad MD: Ethan Enrique M.D. Measurements Intervals [place] Rate: 105 P: 59 [place]: 120 QRS: 55 QRSD: 94 T: 56 QT: 353 QTc: 467 Interpretive Statements SINUS TACHYCARDIA ABNORMAL RHYTHM ECG Compared to ECG 06/29/2021 03:02:09 Sinus rhythm no longer present T-wave abnormality no longer present Electronically Signed On 08-13-2021 23:48:07 CDT by Ethan Enrique M.D. [id number] f
--- NOTE | 2021-08-13 03:30 | W.ED.CHESTPA ---
Documented by User: Elian Hudson MD 08/13/21 18:58 HPI - Chest Pain General: Chief Complaint: Chest Pain Stated Complaint: CP Time Seen by Provider: 08/13/21 03:25 Source: patient and EMS Mode of arrival: EMS Limitations: no limitations History of Present Illness: HPI narrative: 45-year-old female states she has been having sternal chest pain over the last 2 days. States been episodic in nature and was much worse tonight. States originally was an 8 out of 10 was given nitro and aspirin by EMS and is currently a 3 out of 10. States the pain radiates to her jaw and feels like elephant sitting on her chest. She denies any dyspnea or nausea. She did have a heart attack 18 years ago and had 2 stents placed. States she has had no other blockages since then. She has a history of high cholesterol and hypertension. Associated symptoms: Deny abdominal pain, dyspnea, fever(s), nausea or vomiting Review of Systems Const: Denies: fever(s), chills, body aches or change in appetite Eyes: Denies: blurry vision or eye discomfort ENMT: Denies: throat pain or dental pain Card: Reports: chest pain Resp: Denies: dyspnea GI: Denies: abdominal pain, nausea, vomiting or diarrhea : Denies: dysuria Musc: Denies: neck pain or back pain Skin/Breast: Denies: rash Neuro: Denies: headache(s) Psych: Denies: depression Andre/Lymph: Denies: easy bruising All/Imm: Denies: urticaria PFSH ED PFSH: Medical History Allergic reaction HX: benign breast biopsy Impetigo bullosa Intra-abdominal tumor Morbid obesity with BMI of 40.0-44.9, adult Other bursal cyst, left hand Right hand fracture Surgical History History of bariatric surgery History of hysterectomy Physical Exam Const: COMMON NORMALS: no acute distress, patient oriented x3 and healthy appearing HENMT: COMMON NORMALS: normocephalic and atraumatic HEAD & SCALP: normocephalic and atraumatic Eye: COMMON NORMALS: Equal, round and reactive pupils present and EOMs intact bilaterally PUPIL: Yes Equal, round and reactive pupils present Neck/C-Spine: COMMON NORMALS: full ROM and supple Chest: COMMONS NORMALS: normal inspection of the chest and normal palpation of entire chest wall Resp: COMMON NORMALS: normal respiratory effort, No retractions, No use of accessory muscles and clear to auscultation bilaterally AUSCULTATION: clear to auscultation bilaterally Cardio: COMMON NORMALS: regular rate, regular rhythm and No murmurs present (Cardio) RATE: regular rate RHYTHM: regular rhythm GI: COMMON NORMALS: Normal to inspection, nondistended, normoactive bowel sounds present, Soft to palpation, non-tender and no masses PALPATION: Yes Soft to palpation Extremity: COMMON NORMALS: normal to inspection and full ROM Neuro: COMMON NORMALS: patient oriented x3, moves all extremities and no focal motor deficits Psych: COMMON NORMALS: mental status grossly normal, Normal thought process present and cooperative THOUGHT PROCESS: Normal thought process present Skin: COMMON NORMALS: no rashes or lesions noted and no wounds GENERAL SKIN EXAM: no rashes or lesions noted Course Vital Signs: Vital signs: Vital Signs Temperature 97.2 F L 08/13/21 03:27 Pulse Rate 73 08/13/21 06:23 Respiratory Rate 11 L 08/13/21 06:23 Blood Pressure 94/71 08/13/21 06:23 Pulse Oximetry 97 08/13/21 06:23 MDM - Chest Pain MDM Narrative: Medical decision making narrative: Patient presents here with chest pain. She does have extensive history went and spoke to her after her initial troponin. I did offer admission but she states she feels improved. Did have extensive conversation with her and she like to see what her second troponin is and if it is normal she would rather follow-up with cardiology outpatient. Patient's care turned over to Dr. Thomas to follow 2-hour troponin and if normal likely discharge. Lab Data: Labs: Lab Results 08/13/21 08/13/21 08/13/21 03:33 03:33 03:33 WBC 7.7 10^3/uL 10^3/ uL (4.0-10.0) RBC 5.64 10^6/uL H 10 ^6/uL (4.1-5.3) Hgb 15.7 g/dL H g/dL (11.5-15.3) Hct 46.1 % % (37.0-47.0) MCV 81.7 fl fl (81-99) MCH 27.8 pg L pg (28.0-34.0) MCHC 34.1 g/dL g/dL (30.0-36.0) RDW 12.8 % % (12.1-15.1) Plt Count 237 10^3/cmm 10^3 /cmm (130-400) MPV 9.7 fL fL (7.4-10.4) Neut % (Auto) 67.0 % % Lymph % (Auto) 24.3 % % [place] % (Auto) 6.2 % % Eos % (Auto) 1.4 % % Baso % (Auto) 1.0 % % Neut # (Auto) 5.18 10^3/uL 10^3 /uL (1.8-7.7) Lymph # (Auto) 1.9 10^3/uL 10^3/ uL (0.8-4.8) [place] # (Auto) 0.5 10^3/uL 10^3/ uL (0.2-0.9) Eos # (Auto) 0.1 10^3/uL 10^3/ uL (0.0-0.8) Baso # (Auto) 0.1 10^3/uL 10^3/ uL (0.0-0.1) Nucleated RBC % (a uto) 0 % % Nucleated RBCs # 0.0 /100WBC /100W BC PT 12.20 SECONDS SEC ONDS (12.1-14.9) INR 0.88 (0.8-1.2) D-Dimer Sodium 137 mmol/L mmol/L (136-145) Potassium 3.8 mmol/L mmol/L (3.5-5.1) Chloride 99 mmol/L mmol/L (98-107) Carbon Dioxide 26 mmol/L mmol/L (22-29) Anion Gap 15.8 (5-19) BUN 15 mg/dL mg/dL (6-20) Creatinine 0.8 mg/dL mg/dL (0.5-0.9) GFR Calculation 77.6 mL/min L mL/ min (90-130) Glucose 180 mg/dL H mg/dL (65-115) Calculated Osmolal ity 289 mOsm/kg mOsm/ kg (285-295) Calcium 9.7 mg/dL mg/dL (8.5-10.5) Total Bilirubin 0.7 mg/dL mg/dL (0.15-1.2) AST 20 U/L U/L (0-32) ALT 17 U/L U/L (0-33) Alkaline Phosphata se 85 IU/L IU/L (35-105) Troponin T Baselin e Troponin T 120 Min [place] Troponin T Total Protein 7.1 g/dL g/dL (6.6-8.7) Albumin 4.2 g/dL g/dL (3.5-5.2) Globulin 2.9 g/dL g/dL (1.3-4.6) Lipase 50 U/L U/L (13-60) 08/13/21 08/13/21 08/13/21 03:33 03:36 05:12 WBC RBC Hgb Hct MCV MCH MCHC RDW Plt Count MPV Neut % (Auto) Lymph % (Auto) [place] % (Auto) Eos % (Auto) Baso % (Auto) Neut # (Auto) Lymph # (Auto) [place] # (Auto) Eos # (Auto) Baso # (Auto) Nucleated RBC % (a uto) Nucleated RBCs # PT INR D-Dimer 0.52 ug/mIFEU ug/ mIFEU (0-0.59) Sodium Potassium Chloride Carbon Dioxide Anion Gap BUN Creatinine GFR Calculation Glucose Calculated Osmolal ity Calcium Total Bilirubin AST ALT Alkaline Phosphata se Troponin T Baselin e 9 ng/L ng/L (0-10) Troponin T 120 Min [place] 7.69 ng/L ng/L (0-10) [place] Troponin T -1.31 ABS# L ABS# (0-10) Total Protein Albumin Globulin Lipase Imaging Data^: CXR: Attestation: I personally reviewed and interpreted this imaging study as follows: Radiologist's impression: no acute abnormality EKG Data^: EKG 1: Attestation: I personally reviewed and interpreted this EKG as follows: EKG interpretation date: 08/13/21 EKG interpretation time: 03:33 Interpretation: sinus tach hr [address] or t wave abnormalities qrs 94 [id number] EKG 2: Attestation: I personally reviewed and interpreted this EKG as follows: EKG interpretation date: 08/13/21 EKG interpretation time: 04:33 Interpretation: nsr hr [address] or t wave abnormalities qrs 81 qtc 416 EKG 3: Attestation: I personally reviewed and interpreted this EKG as follows: EKG interpretation date: 08/13/21 EKG interpretation time: 05:22 Interpretation: nsr hr [address] or t wave abnormalities qrs 84 qtc 424 Discharge Plan Discharge Patient Disposition: Home Clinical Impression: Chest pain Qualifiers: Chest pain type: unspecified Qualified Code(s): R07.9 - Chest pain, unspecified Condition: Stable Prescriptions: No Action Tylenol Extra Strength 500 mg Tablet 1,000 mg PO Q4H PRN (Reason: Pain) RF: 0 ibuprofen 200 mg Tablet 400 mg PO Q4H PRN (Reason: Pain) RF: 0 Discharge Orders: Discharge ED (Routine); Ordered 08/13/21 Ordered By: Elian Hudson Referrals: Ethan Enrique MD [Physician] - 1-3 days Discharge Diet: Advance as tolerated Discharge Activity: Resume usual activity Patient Instructions: Chest Pain (ED) Coding Level of Care Code ED Arch Pad Cementer for Chg Fwd Exam Comprehensive Documented by User: Gabe Blanco DO 08/13/21 06:19 HPI - Chest Pain General: Chief Complaint: Chest Pain Stated Complaint: CP Time Seen by Provider: 08/13/21 03:25 PFSH ED PFSH: Medical History Allergic reaction HX: benign breast biopsy Impetigo bullosa Intra-abdominal tumor Morbid obesity with BMI of 40.0-44.9, adult Other bursal cyst, left hand Right hand fracture Surgical History History of bariatric surgery History of hysterectomy Course Vital Signs: Vital signs: Vital Signs Temperature 97.2 F L 08/13/21 03:27 Pulse Rate 73 08/13/21 06:23 Respiratory Rate 11 L 08/13/21 06:23 Blood Pressure 94/71 08/13/21 06:23 Pulse Oximetry 97 08/13/21 06:23 MDM - Chest Pain MDM Narrative: Medical decision making narrative: Second troponin is negative. Patient remains pain-free. She wishes to go home. Discharge as per Dr. Hudson's discharge instructions I did add a case management consult for a Lexiscan sestamibi stress test to further evaluate her chest pain. EKGs have been unremarkable to this point. Lab Data: Labs: Lab Results 08/13/21 08/13/21 08/13/21 03:33 03:33 03:33 WBC 7.7 10^3/uL 10^3/ uL (4.0-10.0) RBC 5.64 10^6/uL H 10 ^6/uL (4.1-5.3) Hgb 15.7 g/dL H g/dL (11.5-15.3) Hct 46.1 % % (37.0-47.0) MCV 81.7 fl fl (81-99) MCH 27.8 pg L pg (28.0-34.0) MCHC 34.1 g/dL g/dL (30.0-36.0) RDW 12.8 % % (12.1-15.1) Plt Count 237 10^3/cmm 10^3 /cmm (130-400) MPV 9.7 fL fL (7.4-10.4) Neut % (Auto) 67.0 % % Lymph % (Auto) 24.3 % % [place] % (Auto) 6.2 % % Eos % (Auto) 1.4 % % Baso % (Auto) 1.0 % % Neut # (Auto) 5.18 10^3/uL 10^3 /uL (1.8-7.7) Lymph # (Auto) 1.9 10^3/uL 10^3/ uL (0.8-4.8) [place] # (Auto) 0.5 10^3/uL 10^3/ uL (0.2-0.9) Eos # (Auto) 0.1 10^3/uL 10^3/ uL (0.0-0.8) Baso # (Auto) 0.1 10^3/uL 10^3/ uL (0.0-0.1) Nucleated RBC % (a uto) 0 % % Nucleated RBCs # 0.0 /100WBC /100W BC PT 12.20 SECONDS SEC ONDS (12.1-14.9) INR 0.88 (0.8-1.2) D-Dimer Sodium 137 mmol/L mmol/L (136-145) Potassium 3.8 mmol/L mmol/L (3.5-5.1) Chloride 99 mmol/L mmol/L (98-107) Carbon Dioxide 26 mmol/L mmol/L (22-29) Anion Gap 15.8 (5-19) BUN 15 mg/dL mg/dL (6-20) Creatinine 0.8 mg/dL mg/dL (0.5-0.9) GFR Calculation 77.6 mL/min L mL/ min (90-130) Glucose 180 mg/dL H mg/dL (65-115) Calculated Osmolal ity 289 mOsm/kg mOsm/ kg (285-295) Calcium 9.7 mg/dL mg/dL (8.5-10.5) Total Bilirubin 0.7 mg/dL mg/dL (0.15-1.2) AST 20 U/L U/L (0-32) ALT 17 U/L U/L (0-33) Alkaline Phosphata se 85 IU/L IU/L (35-105) Troponin T Baselin e Troponin T 120 Min [place] Troponin T Total Protein 7.1 g/dL g/dL (6.6-8.7) Albumin 4.2 g/dL g/dL (3.5-5.2) Globulin 2.9 g/dL g/dL (1.3-4.6) Lipase 50 U/L U/L (13-60) 08/13/21 08/13/21 08/13/21 03:33 03:36 05:12 WBC RBC Hgb Hct MCV MCH MCHC RDW Plt Count MPV Neut % (Auto) Lymph % (Auto) [place] % (Auto) Eos % (Auto) Baso % (Auto) Neut # (Auto) Lymph # (Auto) [place] # (Auto) Eos # (Auto) Baso # (Auto) Nucleated RBC % (a uto) Nucleated RBCs # PT INR D-Dimer 0.52 ug/mIFEU ug/ mIFEU (0-0.59) Sodium Potassium Chloride Carbon Dioxide Anion Gap BUN Creatinine GFR Calculation Glucose Calculated Osmolal ity Calcium Total Bilirubin AST ALT Alkaline Phosphata se Troponin T Baselin e 9 ng/L ng/L (0-10) Troponin T 120 Min [place] 7.69 ng/L ng/L (0-10) [place] Troponin T -1.31 ABS# L ABS# (0-10) Total Protein Albumin Globulin Lipase Discharge Plan Discharge Patient Disposition: Home Clinical Impression: Chest pain Qualifiers: Chest pain type: unspecified Qualified Code(s): R07.9 - Chest pain, unspecified Condition: Stable Prescriptions: No Action Tylenol Extra Strength 500 mg Tablet 1,000 mg PO Q4H PRN (Reason: Pain) RF: 0 ibuprofen 200 mg Tablet 400 mg PO Q4H PRN (Reason: Pain) RF: 0 Discharge Orders: Discharge ED (Routine); Ordered 08/13/21 Ordered By: Elian Hudson Referrals: Ethan Enrique MD [Physician] - 1-3 days Discharge Diet: Advance as tolerated Discharge Activity: Resume usual activity Patient Instructions: Chest Pain (ED) Coding Level of Care Code ED Arch Pad Cementer for Chg Fwd Exam Comprehensive
[2021-08-13] MEDS: ondansetron 2 mg/ML SDV 2 mL 4 MG IVP ×2 (03:38→05:07)
[2021-08-13] MEDS: morphine 4 mg/mL SDV 1 mL IVP ×2 (03:39→05:28)
[2021-08-13 03:41] LABS: Basophils # 0.1 10^3/uL (0.0-0.1); Eosinophils # 0.1 10^3/uL (0.0-0.8); Eosinophils % 1.4 %; Hematocrit 46.1 % (37.0-47.0); Hemoglobin 15.7 g/dL (11.5-15.3); Lymphocytes # 1.9 10^3/uL (0.8-4.8); Lymphocytes % 24.3 %; Mean Corpuscular HGB Conc 34.1 g/dL (30.0-36.0); Mean Corpuscular Hemoglobin 27.8 pg (28.0-34.0); Mean Corpuscular Volume 81.7 fl (81-99); Mean Platelet Volume 9.7 fL (7.4-10.4); Monocytes # 0.5 10^3/uL (0.2-0.9); Monocytes % 6.2 %; Neutrophils # 5.18 10^3/uL (1.8-7.7); Nucleated Red Blood Cells % 0 %; Platelet Count 237 10^3/cmm (130-400); Red Blood Count 5.64 10^6/uL (4.1-5.3); Red Cell Distribution Width 12.8 % (12.1-15.1); White Blood Count 7.7 10^3/uL (4.0-10.0)
[2021-08-13 04:27] LABS: Alanine Aminotransferase 17 U/L (0-33); Albumin Level 4.2 g/dL (3.5-5.2); Alkaline Phosphatase 85 IU/L (35-105); Anion Gap 15.8 (5-19); Aspartate Amino Transferase 20 U/L (0-32); Blood Urea Nitrogen 15 mg/dL (6-20); Calcium 9.7 mg/dL (8.5-10.5); Carbon Dioxide 26 mmol/L (22-29); Chloride 99 mmol/L (98-107); Globulin 2.9 g/dL (1.3-4.6); Glomerular Filtration Rate 77.6 mL/min (90-130); Glucose 180 mg/dL (65-115); Lipase 50 U/L (13-60); Osmolality Calculated 289 mOsm/kg (285-295); Potassium 3.8 mmol/L (3.5-5.1); Sodium 137 mmol/L (136-145); Total Bilirubin 0.7 mg/dL (0.15-1.2); Total Protein 7.1 g/dL (6.6-8.7)
[2021-08-13] MEDS: nitroglycerin 0.4 mg sublingual Tablet SUBLINGUAL (04:27)
[2021-08-13 04:30] LABS: INR 0.88 (0.8-1.2); Troponin(5th) Baseline 9 ng/L (0-10)
[2021-08-13 05:17] LABS: D Dimer 0.52 ug/mIFEU (0-0.59)
--- NOTE | 2021-08-13 05:26 | ECG_ITS ---
[facility] Test Date: 2021-08-13 Pat Name: Tania Rodriguez Department: Room: Gender: Female Professor Of Languages: : 1975 Requested By: Elian Hudson Order Number: [id number] Caridad MD: Ethan Enrique M.D. Measurements Intervals [place] Rate: 97 P: 46 [place]: 139 QRS: 27 QRSD: 81 T: 37 QT: 361 QTc: 460 Interpretive Statements SINUS RHYTHM Compared to ECG 08/13/2021 03:33:00 Sinus tachycardia no longer present Electronically Signed On 08-13-2021 23:58:21 CDT by Ethan Enrique M.D. [email or web address] [email or web address] med[facility] hospitalVarsity [email or web address]/store/NU/[id number] f
[2021-08-13 06:01] LABS: Troponin 5 2HR 7.69 ng/L (0-10)
[2021-08-13 06:02] LABS: Troponin 5 2HR Delta -1.31 ABS# (0-10)
--- NOTE | 2021-08-14 11:43 | DCPLANNER ---
field operations farm manager had message to schedule a follow up appointment for patient with [facility]. field operations farm manager called [facility], spoke with Onelia, gave clinic patients information. A follow up appointment was scheduled for Wednesday, September 01, [address] at 2:[address] Enrique. field operations farm manager called patient and left a voicemail for patient with the appointment information.
--- NOTE | 2021-08-14 13:39 | DCPLANNER ---
manager land had message to schedule a follow up appointment for patient for an outpatient stress test. manager land faxed signed order to centralized scheduling, who will call patient with appointment information.
--- NOTE | 2021-09-28 07:48 | DCPLANNER ---
Patient has an outpatient stress test scheduled for Tuesday, October 05, 2021 at 9:15. Centralized scheduling will call patient with appointment information.
--- NOTE | 2021-10-09 12:12 | DCPLANNER ---
Addendum entered by Marie Cleary 11/07/21 11:55: Patient had a follow up appointment scheduled with [facility] - appointment was cancelled. Original Note: Patient had a stress test scheduled - patient did not attend appointment.
== END 2021-08-13 06:25 | disposition home or self-care (01) ==
PROVIDERS: Emergency Medicine; Emergency Provider Family Medicine
DX: R07.9 Chest pain, unspecified (principal)
CPT/HCPCS: 71045; 80053; 83690; 84484; 85025; 85378; 85610; 93005; 96374; 96375; 96376; 99284; J2270; J2405

== ENCOUNTER 2021-08-25 16:06 | Emergency (ER) | payer OTHER, MEDICARE, MEDICAID, SELFPAY ==
[2021-08-25 16:18] VITALS: BP 143/90; PULSE 103; RESP 18; TEMP 37.7; O2SAT 98; BMI 40.2
--- NOTE | 2021-08-25 17:03 | W.ED.SKABFB ---
HPI - Skin/Abscess/Foreign Bdy General: Chief complaint: Skin/Abscess/Foreign Body Stated complaint: Knot under armpit, nausea, pain Time Seen by Provider: 08/25/21 17:03 History of Present Illness: HPI narrative: Ms. Rodriguez is a 45-year-old lady without significant past medical history presents emergency department due to skin concern. She reports her symptoms for started about 1 week ago with a insect bite concerning for proper glucose of the left forearm. She was treated with antibiotics at that time however about 2 days ago started noticing increased redness and pain on the right lateral chest wall. There is been no drainage. Symptoms are worse with palpation and movement. Intensity of pain is now moderate to severe and aching in quality. Denies history of MRSA. Generalized malaise but no other specific infectious symptoms. No other changes in health, exacerbating, or alleviating factors identified. Review of Systems General: Reports: 10 or more systems reviewed and unremarkable except in HPI and below PFSH ED PFSH: Medical History Allergic reaction HX: benign breast biopsy Impetigo bullosa Intra-abdominal tumor Morbid obesity with BMI of 40.0-44.9, adult Other bursal cyst, left hand Right hand fracture Surgical History History of bariatric surgery History of hysterectomy Physical Exam Narrative: EXAM NARRATIVE: GENERAL/CONSTITUTIONAL - well-appearing. Uncomfortable due to pain. Nontoxic. Eyes - PERRL, no conjunctival injection ENMT - Atraumatic external nose and ears. Moist mucous membranes NECK - supple. trachea midline CARDIOVASCULAR - regular rate and rhythm. Peripheral pulses 2+ and equal RESPIRATORY -clear to auscultation bilaterally. CHEST WALL - right-sided chest wall tender erythematous region measuring approximately 10 cm x 8 cm, erythematous with small area of drainage. Tender to palpation. No vesicular lesions. No evidence of laceration. ABDOMEN/GI - Nontender/Nondistended. MSK - Extremities without obvious deformity or tenderness to palpation SKIN - Warm, Dry, see chest wall NEURO - alert and appropriately oriented. Moves all extremities. PSYCH -anxious Procedures Abscess I/D Site: chest Side (if applicable): right Local Anesthetic: lidocaine 1% and with epi Amount of anesthesia used (mL): 5 Technique: incised with #11 blade Amount of fluid expressed (mL): 20 Irrigation: Yes Packing used?: plain Course ED course: - Patient was seen and evaluated by me at bedside - Patient placed on cardiac monitors, IV access obtained - Initial evaluation notable for exam as noted above. Nontoxic. No signs of sepsis. -Analgesia given - I performed [id number] ultrasound of soft tissue. The more posterior lateral region of concern shows soft tissue edema consistent with cellulitic changes however no specific fluid collection. More anteriorly there were fluid collections with mild internal debris but well-defined edges. No close vascular structures identified. - Bedside incision and drainage performed using ultrasound guidance to ensure all defined fluid collections were drained. Packing placed. There was mild discomfort however overall within the context of its expected during procedure. - Upon serial reexamination after treatment the patient was improved - Based on patient history, evaluation, labs, and imaging as interpreted the most likely cause of the patient's condition is cellulitis with abscess status post incision and drainage. - The results of ED evaluation were discussed with the patient including prescriptions and/or symptomatic cares (if applicable) including appropriate and responsible use, followup plan, and return precautions. Packing change needed was discussed. The patient verbalized understanding and felt safe for discharge. - Patient discharged in satisfactory condition. Vital Signs: Vital signs: Vital Signs Temperature 99.8 F H 08/25/21 17:15 Pulse Rate 100 08/25/21 21:10 Respiratory Rate 16 08/25/21 21:10 Blood Pressure 135/92 08/25/21 21:10 Pulse Oximetry 92 08/25/21 21:10 MDM - Skin/Abscess/Foreign Bdy Medical Records: Attestation: I reviewed the patient's medical records. Lab Data: Attestation: I reviewed the patient's lab results. Discharge Plan Discharge Patient Disposition: Home Clinical Impression: Abscess of skin or subcutaneous tissue, Cellulitis Condition: Stable Prescriptions: New clindamycin HCl 150 mg capsule 450 mg PO Q8H 7 Days Qty: 63 RF: 0 oxycodone 5 mg tablet 5 mg PO Q4H PRN (Reason: pain) Qty: 10 RF: 0 No Action Tylenol Extra Strength 500 mg Tablet 1,000 mg PO Q4H PRN (Reason: Pain) RF: 0 ibuprofen 200 mg Tablet 400 mg PO Q4H PRN (Reason: Pain) RF: 0 Discharge Orders: Discharge ED (Routine); Ordered 08/25/21 Ordered By: Victor Hugo Almanza Discharge Diet: Usual diet Discharge Activity: Resume usual activity Patient Instructions: Cellulitis (ED), Acute Wound Care (ED), Abscess (ED), Opioid Safety Activity Restrictions/Additional Instructions: Thank you for visiting the emergency department. You were seen and evaluated for skin changes. You were found to have cellulitis and an abscess which was drained at bedside. As discussed this requires reevaluation and packing change in 2 days. Please follow-up with your primary care provider. Please return to the emergency department for worsening symptoms or anything else that you are concerned about and feel needs emergent department evaluation. Coding Level of Care Code ED Senior Technical Architect for Donald Sofia
[2021-08-25 17:15] VITALS: BP 142/89; PULSE 74; RESP 18; TEMP 37.7; O2SAT 96
--- NOTE | 2021-08-25 17:21 | PC.NURSE ---
Pt has an abcess under her right arm pit.
[2021-08-25 18:27] VITALS: BP 141/90; PULSE 94; RESP 20; O2SAT 99
[2021-08-25 18:32] VITALS: RESP 20; O2SAT 100
[2021-08-25] MEDS: fentaNYL 50 mcg/mL INJ 2mL 75 MCG IVP ×2 (18:32→19:15)
[2021-08-25 19:15] VITALS: RESP 21; O2SAT 97
[2021-08-25 21:10] VITALS: BP 135/92; PULSE 100; RESP 16; O2SAT 92
--- NOTE | 2021-08-25 21:15 | PC.NURSE ---
Wound Packing 1 bottle of Curity plain packing used
== END 2021-08-25 21:05 | disposition home or self-care (01) ==
PROVIDERS: Emergency Provider Emergency Medicine
DX: L02.213 Cutaneous abscess of chest wall (principal); L03.90 Cellulitis, unspecified
CPT/HCPCS: 10060; 10061; 96374; 96376; 99284; J3010

== ENCOUNTER 2021-08-28 11:17 | Emergency (ER) | payer OTHER, MEDICARE, MEDICAID, SELFPAY ==
[2021-08-28 12:04] VITALS: BP 131/86; PULSE 72; RESP 18; TEMP 36.7; O2SAT 99; BMI 41.1
[2021-08-28 12:23] VITALS: BP 131/86; PULSE 72; RESP 16; O2SAT 99
--- NOTE | 2021-08-28 12:33 | ED_ITS ---
HPI - Skin/Abscess/Foreign Bdy General: Chief complaint: Skin/Abscess/Foreign Body Stated complaint: Painful Mass under Right Arm Time Seen by Provider: 08/28/21 12:14 History of Present Illness: HPI narrative: Patient is a 45-year-old female comes to the ED with abscess. Patient was seen here in the ED on August 25 for same complaint. And abscess I&D was performed then and packing was placed and abscess. She has been taking her prescribed clindamycin since discharge from ED. Today she went to her PCP to have packing removed. The doctor did not want to remove the packing at the office and sent her to the ED. Patient says abscess is still painful and it is draining. The swelling and redness has improved a lot since I&D. Associated symptoms: Deny chills, fever(s), nausea or vomiting Review of Systems Const: Denies: fever(s), chills or fatigue Eyes: Denies: change in vision or eye discomfort ENMT: Denies: throat pain, odynophagia, nasal discharge or nasal congestion Card: Denies: chest pain, palpitations, edema, swelling of feet/ankles, dyspnea on exertion or orthopnea Resp: Denies: dyspnea, productive cough or non-productive cough GI: Denies: abdominal pain, nausea, vomiting, diarrhea, constipation or hematochezia : Denies: flank pain, dysuria or hematuria Musc: Denies: neck pain, back pain or extremity swelling Skin/Breast: Reports: new lesions (Abscess below right axillary region-recheck and remove packing); Denies: rash Neuro: Denies: headache(s), numbness in extremities or weakness in extremities [facility] ED PFSH: Medical History Allergic reaction HX: benign breast biopsy Impetigo bullosa Intra-abdominal tumor Morbid obesity with BMI of 40.0-44.9, adult Other bursal cyst, left hand Right hand fracture Surgical History History of bariatric surgery History of hysterectomy Physical Exam Const: COMMON NORMALS: no acute distress, patient oriented x3 and alert GENERAL APPEARANCE: cooperative and comfortable HENMT: COMMON NORMALS: normocephalic HEAD & SCALP: normocephalic MOUTH: Normal oral and palatal mucosa present THROAT: posterior oropharynx normal and uvula midline Neck/C-Spine: COMMON NORMALS: supple GENERAL: Yes normal visual inspection Resp: COMMON NORMALS: normal respiratory effort, No retractions, No use of accessory muscles and clear to auscultation bilaterally AUSCULTATION: clear to auscultation bilaterally Cardio: COMMON NORMALS: regular rate, regular rhythm, S1 normal heart sound present, S2 normal heart sound present, No gallops present (Cardio), No clicks present (Cardio), No murmurs present (Cardio) and Peripheral pulses 2+ throughout RATE: regular rate RHYTHM: regular rhythm HEART SOUNDS: S1 normal heart sound present and S2 normal heart sound present PERIPHERAL PULSES: Peripheral pulses 2+ throughout GI: COMMON NORMALS: Normal to inspection, nondistended, normoactive bowel sounds present, Soft to palpation, non-tender and no masses PALPATION: Yes Soft to palpation : COMMON NORMALS: Yes no CVA tenderness BLADDER/KIDNEY EXAM: Yes no CVA tenderness Back/Pelvis: COMMON NORMALS: no CVA tenderness Extremity: COMMON NORMALS: normal to inspection Neuro: COMMON NORMALS: patient oriented x3 and moves all extremities SENSORIUM/ORIENTATION: Yes alert Skin: NARRATIVE SKIN EXAM: Patient has visible abscess I&D site just inferior to right axillary region. Packing is visible and patient still has some purulent drainage noted. Mild tenderness palpation with some surrounding erythema. Abscess appears to be healing well. GENERAL SKIN EXAM: dry skin Course ED course: I removed the abscess packing patient still has a little purulent drainage noted. I then reinserted some new packing into the abscess. I told her to have packing removed in the next 48 hours. Vital Signs: Vital signs: Vital Signs Temperature 98.1 F 08/28/21 12:04 Pulse Rate 72 08/28/21 12:23 Respiratory Rate 16 08/28/21 12:23 Blood Pressure 131/86 08/28/21 12:23 Pulse Oximetry 99 08/28/21 12:23 MDM - Skin/Abscess/Foreign Bdy MDM Narrative: Medical decision making narrative: Patient is a 45-year-old female comes to the ED to get abscess rechecked and packing removed. Patient says that the size of the abscess and swelling has improved greatly since I&D was performed here in the ED on August 25. I removed the packing material and patient still had a little bit of purulent drainage but abscess was still open to drain. Abscess appears to be healing well. The nurse flushed and irrigated the abscess with normal saline and then I placed some packing back into abscess. Patient was told to follow-up with her PCP in the next 48 hours to have abscess rechecked and to have packing removed. She was told to continue taking her previously prescribed clindamycin. return to ED precautions given. Patient understood and agreed with plan. Discharge Plan Discharge Patient Disposition: Home Clinical Impression: Encounter for abscess packing removal, Abscess re-check Condition: Stable Prescriptions: No Action clindamycin HCl 150 mg capsule 450 mg PO Q8H 7 Days Qty: 63 RF: 0 oxycodone 5 mg tablet 5 mg PO Q4H PRN (Reason: pain) Qty: 10 RF: 0 Tylenol Extra Strength 500 mg Tablet 1,000 mg PO Q4H PRN (Reason: Pain) RF: 0 ibuprofen 200 mg Tablet 400 mg PO Q4H PRN (Reason: Pain) RF: 0 Discharge Orders: Discharge ED (Routine); Ordered 08/28/21 Ordered By: Arron Wise Discharge Diet: Regular Discharge Activity: Resume usual activity Patient Instructions: Abscess (ED), Abscess Follow-up (ED), Opioid Safety Activity Restrictions/Additional Instructions: Follow-up with medical provider as directed. Have packing removed at your PCP office in the next 48 hours. Take medications as prescribed. Return to the ER or your medical provider if condition worsens. Please read and understand discharge instructions. Thank you for choosing [facility] for your healthcare needs today. Please realize this is an emergency room and that we are providing you with a medical screening exam and this may not be complete and all inclusive of all the testing and or work up that you may need to determine your ailment or severity of your illness. It is very important that you follow up as instructed or that you return to the Emergency Department should you have concerns or if your condition changes or worsens in any way. Coding Level of Care Code ED [employer] for Donald Sofia Exam Comprehensive
[2021-08-28] MEDS: HYDROcodone-acetaminophen 7.5-325 mg Tablet 1 TAB PO (12:42)
== END 2021-08-28 13:43 | disposition home or self-care (01) ==
PROVIDERS: Emergency Provider Physician Assistant
DX: Z48.00 Encounter for change or removal of nonsurgical wound dressing (principal)
CPT/HCPCS: 99283